=== PATIENT | male | born 1995 | race African-American/Black ===

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

== ENCOUNTER 2017-08-18 21:03 | Emergency (ER) | payer OTHER ==
[2017-08-18] MEDS: CEFDINIR 300 MG CAP (OMNICEF) PO (23:32)
== END 2017-08-18 23:41 | disposition home or self-care (01) ==
LOC: M ED 21:03
DX: R04.0 Epistaxis (principal)
CPT/HCPCS: 99282